=== PATIENT | female | born 1995 | race Hispanic/Latino ===

== ENCOUNTER 2022-02-04 23:47 | Emergency (ER) | payer SELFPAY ==
[2022-02-05 00:16] LABS: Bilirubin Negative (Negative); Blood, Urine Moderate (Negative); Clarity Clear (Clear); Glucose, Urine (Dipstick) 100 mg/dL (Negative); Ketone, Urine Negative (Negative); Leukocyte Large (Negative); Nitrite Positive (Negative); Protein, Urine (Dipstick) 100 mg/dL (Neg-Trace); Urobilinogen 0.2 mg/dL (Less than 2)
[2022-02-05 00:18] LABS: Pregnancy Test - Urine (BHCG) Negative (Negative); Pregu Control Background? CLEAR/WHITE (CLR/WHITE); Pregu Control Bar Appear? YES (CONTROL BAR); Specific Gravity 1.012 (1.002-1.036)
[2022-02-05 00:21] LABS: Bacteria/HPF None Seen HPF (None Seen); Squamous Epithelial None Seen HPF (0-3); WBC/HPF Greater than 50 HPF (0-3)
[2022-02-05] MEDS ORDERED: Ondansetron PF 4 MG/2 ML Vial ONE (00:32)
[2022-02-05] MEDS ORDERED: Morphine 4 MG/ML VIAL ONE (00:32)
[2022-02-05 00:39] LABS: #Basophils 0.1 thou/uL (0.0-0.2); #Eosinphils 0.1 thou/uL (0.0-0.7); #Lymphocytes 1.6 thou/uL (1.20-3.40); #Neutrophils 10.5 thou/uL (1.40-6.50); %Basophils 0.5 % (0.0-1.0); %Eosinophils 0.5 % (0.0-10.0); %Lymphocytes 11.9 % (21.0-51.0); %Monocytes 7.3 % (0.0-10.0); %Neutrophils 79.7 % (42.0-75.0); Hemoglobin 13.8 g/dL (12.0-16.0); Mean Corpuscular HGB CONC 33.5 g/dL (32.0-36.0); Mean Corpuscular Hemoglobin 30.3 pg (27.0-31.0); Mean Corpuscular Volume 90.4 fL (78.0-98.0); Mean Platelet Volume 7.9 fL (7.4-10.4); Platelet Count 303 thou/uL (130-400); RBC Distribution Width 11.6 % (11.5-14.5); Red Blood Cell (RBC) Count 4.55 mill/uL (4.20-5.40); White Blood Cell (WBC) Count 13.1 thou/uL (4.8-10.8)
[2022-02-05 01:01] LABS: Anion Gap 15 mmol/L (10-20); BUN (Urea Nitrogen) 6 mg/dL (7.0-18.7); Calc. Creatinine Clearance 0 mL/min (70-130); Carbon Dioxide 22 mmol/L (22-29); Chloride 106 mmol/L (98-107); Potassium 3.4 mmol/L (3.5-5.1); Sodium 140 mmol/L (136-145)
[2022-02-05 01:02] LABS: ALT (SGPT) 17 U/L (8-55); AST (SGOT) 13 U/L (5-34); Albumin 4.4 g/dL (3.5-5.0); Bilirubin, Total 0.4 mg/dL (0.2-1.2); Calcium 8.9 mg/dL (7.8-10.44); Estimated GFR 122; Globulin 2.9 g/dL (2.4-3.5); Glucose 107 mg/dL (70-105); Lipase 18 U/L (8-78); Protein, Total 7.3 g/dL (6.0-8.3)
[2022-02-05 01:08] LABS: Alkaline Phosphatase 90 U/L (40-110)
[2022-02-05] MEDS ORDERED: cefTRIAXone\\ROCEPHIN 1 GM VIAL ONE (02:15)
[2022-02-05] MEDS ORDERED: Sodium Chloride 0.9% 100 ML ONE (02:15)
[2022-02-05] MEDS ORDERED: Iopamidol 370 76% 100 ML VIAL ONE (09:41)
== END 2022-02-05 02:50 | disposition home or self-care (01) ==
LOC: NAV ERS 23:47
DX: N10 Acute pyelonephritis (principal)
CPT/HCPCS: 74177; 80053; 81003; 81015; 81025; 83690; 85025; 87077; 87086; 87186; 96365; 96375; J0696; J2270; J2405; J3490; Q9967